=== PATIENT | female | born 1985 | race Caucasian/White ===

== ENCOUNTER 2017-07-28 23:43 | Emergency (ER) | payer OTHER ==
[~2017-07-28 23:43] MED LIST: Bactrim Ds Tab1 EACH PO; Keflex500 MG PO; Norco 5-325 Ta1 EACH PO; Robaxin500 MG PO
== END 2017-07-29 | disposition left against medical advice (07) ==
LOC: ER 23:43
DX: Z53.21 Procedure and treatment not carried out due to patient leaving prior to being seen by health care provider (principal)

== ENCOUNTER → 2019-05-03 | Outpatient (CLI) | payer OTHER | LOC: LAB SHORT 17:05 → LAB EV 17:05 | DX: R50.9 Fever, unspecified (principal) | CPT/HCPCS: 87077; 87081 ==

== ENCOUNTER 2019-07-28 10:59 | Day surgery (SDC) | payer OTHER ==
[~2019-07-28] VITALS: Ht 177.8 cm; Wt 52.5 kg
[~2019-07-28 10:59] MED LIST changes: +Bentyl20 MG PO
--- NOTE | 2019-07-28 14:25 | NUR ---
07/28/19 1424 Lauren Madrid DELAYED ENTRY PT WOKE UP FROM PROCEDURE C/O NAUSEA AND ABD PAIN 8/10. PT MEDICATED WITH 4MG IV ZOFRAN AND 25MCG FENTANYL IV PER . PT AMBULATED TO RESTROOM AND PASSED APPROXIMATELY 2TBLSP BRIGHT RED BLOOD BY RECTUM WITH CLOTTING. [address] BEE. OK TO DC PT PER . 1330 PT PASSED MORE RED BLOOD PER RECTUM, APPROXIMATELY 1.5TBLSP WORTH. PT COUGHING INTERMITTENTLY. PT STATES HER PAIN DECREASES TO A 4/10 AFTER PASSING THE BLOOD. RXS CALLED DR BEE TO NOTIFY HIM OF THE ADDITIONAL BLOOD. SUGGESTED PT SHOULD GO TO THE ED IF SHE IS CONCERNED, "BLEEDING IS MOST LIKELY DUE TO REMOVAL OF POLYP AND BIOPSIES" PER DR BEE. INFORMATION RELAYED TO PT'S MOTHER, LUPE. PT STATES SHE DOES NOT WANT TO GO TO ED AND WANTS TO "GO HOME AND SLEEP." PT AND MOTHER ENCOURAGED TO GO TO ED OR CALL DR BEE IF BLEEDING AND PAIN PERSISTS.
== END 2019-07-28 14:09 | disposition home or self-care (01) ==
LOC: ORSCSDS 10:59
PROVIDERS: Internal Medicine Gastroenterology
PROC: 0DB68ZX Excision of Stomach, Via Natural or Artificial Opening Endoscopic, Diagnostic (ICD-10-PCS; principal; 2019-07-28 12:30)
PROC: 0DB88ZX Excision of Small Intestine, Via Natural or Artificial Opening Endoscopic, Diagnostic (ICD-10-PCS; principal; 2019-07-28 12:30)
PROC: 0DB98ZX Excision of Duodenum, Via Natural or Artificial Opening Endoscopic, Diagnostic (ICD-10-PCS; principal; 2019-07-28 12:30)
PROC: 0DBN8ZX Excision of Sigmoid Colon, Via Natural or Artificial Opening Endoscopic, Diagnostic (ICD-10-PCS; 2019-07-28 12:30)
PROC: 0DBM8ZX Excision of Descending Colon, Via Natural or Artificial Opening Endoscopic, Diagnostic (ICD-10-PCS; 2019-07-28 12:30)
DX: R10.9 Unspecified abdominal pain (principal); R19.4 Change in bowel habit; K63.5 Polyp of colon; D12.5 Benign neoplasm of sigmoid colon; K64.8 Other hemorrhoids; B96.81 Helicobacter pylori [H. pylori] as the cause of diseases classified elsewhere; K21.9 Gastro-esophageal reflux disease without esophagitis; F17.210 Nicotine dependence, cigarettes, uncomplicated; Z79.899 Other long term (current) drug therapy
CPT/HCPCS: 88305; 88342; J2250; J2405; J2704; J3010; J7120

== ENCOUNTER → 2019-12-26 | Outpatient (CLI) | payer OTHER ==
[2019-12-27 20:09] LABS: ADENOVIRUS F 40/41 Not Detected (Not Detected); ASTROVIRUS Not Detected (Not Detected); C DIFFICILE TOXIN A/B Not Detected (Not Detected); CAMPYLOBACTER Not Detected (Not Detected); CRYPTOSPORIDIUM Not Detected (Not Detected); CYCLOSPORA CAYETANENSIS Not Detected (Not Detected); ENTAMOEBA HISTOLYTICA Not Detected (Not Detected); ENTEROAGGREGATIVE E COLI Not Detected (Not Detected); ENTEROPATHOGENIC E COLI Not Detected (Not Detected); ENTEROTOXIGENIC E COLI Not Detected (Not Detected); GIARDIA LAMBLIA Not Detected (Not Detected); NOROVIRUS GI/GII Not Detected (Not Detected); PLESIOMONAS SHIGELLOIDES Not Detected (Not Detected); ROTAVIRUS A Not Detected (Not Detected); SALMONELLA Not Detected (Not Detected); SAPOVIRUS Not Detected (Not Detected); SHIGA-TOXIN-PRODUCING E COLI Not Detected (Not Detected); SHIGELLA/ENTEROINVASIVE E COLI Not Detected (Not Detected); VIBRIO Not Detected (Not Detected); VIBRIO CHOLERAE Not Detected (Not Detected); YERSINIA ENTEROCOLITICA Not Detected (Not Detected)
== END ==
LOC: LAB 09:49 → LAB SHORT 09:49
PROVIDERS: Internal Medicine Gastroenterology
DX: R19.4 Change in bowel habit (principal)
CPT/HCPCS: 0097U

== ENCOUNTER 2021-06-20 11:18 | Emergency (ER) | payer OTHER ==
[~2021-06-20] VITALS: Ht 152.4 cm; Wt 56.7 kg
[2021-06-20] MEDS ORDERED: Robaxin750 MG PO (12:35)
== END 2021-06-20 12:53 | disposition home or self-care (01) ==
LOC: ER 11:18
DX: S40.012A Contusion of left shoulder, initial encounter (principal); S80.02XA Contusion of left knee, initial encounter; S80.01XA Contusion of right knee, initial encounter; S16.1XXA Strain of muscle, fascia and tendon at neck level, initial encounter; F17.200 Nicotine dependence, unspecified, uncomplicated; V89.2XXA Person injured in unspecified motor-vehicle accident, traffic, initial encounter; Y92.413 State road as the place of occurrence of the external cause; Z88.6 Allergy status to analgesic agent
CPT/HCPCS: 71046; 73000; 73562-LT; 73562-RT; A9270; J2405

== ENCOUNTER 2022-01-03 10:42 | Day surgery (SDC) | payer OTHER ==
[~2022-01-03 10:42] MED LIST changes: +Robaxin750 MG PO
== END 2022-01-03 14:06 | disposition home or self-care (01) ==
DX: R19.4 Change in bowel habit (principal); K21.9 Gastro-esophageal reflux disease without esophagitis; R10.9 Unspecified abdominal pain; R14.2 Eructation; F17.210 Nicotine dependence, cigarettes, uncomplicated; Z79.899 Other long term (current) drug therapy